=== PATIENT | male | born 1945 | race African-American/Black ===

== ENCOUNTER 2016-12-25 17:15 | Emergency (ER) | payer OTHER, BC ==
[~2016-12-25 17:15] MED LIST: ATEN100 PO; HALF81 PO; HYDROCHLOROT25 MG PO; LISINOPRIL40 MG PO; PERCOCET1 TA3 PO; SUDAFED PO
== END 2016-12-25 17:38 | disposition home or self-care (01) ==
LOC: ER 17:15
DX: S39.012A Strain of muscle, fascia and tendon of lower back, initial encounter (principal); S16.1XXA Strain of muscle, fascia and tendon at neck level, initial encounter; I10 Essential (primary) hypertension; Z91.041 Radiographic dye allergy status; Z79.82 Long term (current) use of aspirin; Z79.899 Other long term (current) drug therapy; V29.00XA Motorcycle driver injured in collision with unspecified motor vehicles in nontraffic accident, initial encounter
CPT/HCPCS: 72072; 72100; 99284; A9270-GY; J2360